=== PATIENT | female | born 1995 | race Caucasian/White ===

== ENCOUNTER 2017-06-19 10:38 | Emergency (ER) | payer OTHER ==
[~2017-06-19] VITALS: Ht 172.7 cm; Wt 90.7 kg
[2017-06-19 10:46] VITALS: BP 120/75
[2017-06-19 12:00] VITALS: BP 124/78
== END 2017-06-19 12:00 | disposition home or self-care (01) ==
LOC: MED 10:38
DX: J02.9 Acute pharyngitis, unspecified (principal); J06.9 Acute upper respiratory infection, unspecified
CPT/HCPCS: 99283

== ENCOUNTER 2017-12-30 19:45 | Emergency (ER) | payer MEDICAID, OTHER ==
[~2017-12-30] VITALS: Ht 172.7 cm; Wt 104.8 kg
[2017-12-30 19:55] VITALS: BP 119/72
[2017-12-30] MEDS ORDERED: KETOROLAC 30 MG/ML VIAL IM ONE (20:25)
[2017-12-30] MEDS ORDERED: CYCLOBENZAPRINE 10 MG TAB PO ONE (20:25)
[2017-12-30 22:22] VITALS: BP 119/72
== END 2017-12-30 22:23 | disposition home or self-care (01) ==
LOC: MED 19:45
DX: S39.012A Strain of muscle, fascia and tendon of lower back, initial encounter (principal); M79.18 Myalgia, other site; X50.0XXA Overexertion from strenuous movement or load, initial encounter; X50.9XXA Other and unspecified overexertion or strenuous movements or postures, initial encounter; Y93.89 Activity, other specified; Y92.89 Other specified places as the place of occurrence of the external cause; Y99.8 Other external cause status
CPT/HCPCS: 72131; 81002; 81025; 96372; 99284; J1885

== ENCOUNTER 2018-01-18 11:16 | Emergency (ER) | payer MEDICAID, OTHER ==
[~2018-01-18] VITALS: Ht 172.7 cm; Wt 109.0 kg
[2018-01-18 11:30] VITALS: BP 110/63
[2018-01-18] MEDS: HYDROcodone/APAP 5/325 MG 1 TAB TAB PO ONE (12:49)
[2018-01-18] MEDS: METHOCARBAMOL 500 MG TAB PO STA (12:49)
[2018-01-18] MEDS: KETOROLAC 60 MG/2 ML VIAL IM ONE (12:52)
[2018-01-18] MEDS: DEXAMETHASONE 10 MG/ML VIAL IM SCH (13:18)
[2018-01-18 13:30] VITALS: BP 112/62
== END 2018-01-18 13:30 | disposition home or self-care (01) ==
LOC: MED 11:16
DX: G89.29 Other chronic pain (principal); M54.5 Low back pain; R20.0 Anesthesia of skin; R53.1 Weakness; E66.9 Obesity, unspecified; Z79.899 Other long term (current) drug therapy
CPT/HCPCS: 96372; 99283; J1100; J1885